=== PATIENT | male | born 1975 | race American Indian/Alaskan Native ===

== ENCOUNTER 2019-06-09 12:34 | Emergency (ER) | payer SELFPAY ==
[2019-06-09 13:05] VITALS: BP 157/114
--- NOTE | 2019-06-09 13:06 | Event Note ---
ED Screening Note Date of service: 06/09/19 Time: 13:02 ED Screening Note: 44 yo presents with cc of right sided flank/side rib pain not resolving x 2 months states pain with deep inhalation This initial assessment/diagnostic orders/clinical plan/treatment(s) is/are subject to change based on patients health status, clinical progression and re- assessment by fellow clinical providers in the ED. Further treatment and workup at subsequent clinical providers discretion. Patient/guardian urged not to elope from the ED as their condition may be serious if not clinically assessed and managed. Initial orders include: xr ua
--- NOTE | 2019-06-09 13:37 | XRay Report ---
CHEST 2 VIEWS INDICATION / CLINICAL INFORMATION: pain with inhalation. COMPARISON: None available. FINDINGS: SUPPORT DEVICES: None. HEART / MEDIASTINUM: No significant abnormality. LUNGS / PLEURA: No significant pulmonary or pleural abnormality. No pneumothorax. ADDITIONAL FINDINGS: No significant additional findings. IMPRESSION: 1. No acute findings. Signer Name: James Katz MD Signed: 06/09/2019 1:33 PM Workstation Name: [id number]
[2019-06-09 13:40] LABS: Bilirubin,Urine NEG (Negative); Blood,Urine NEG (Negative); Color,Urine Amber (Yellow); Mucus,Urine FEW /HPF
--- NOTE | 2019-06-09 15:44 | Emergency Department Report ---
ED Chest Pain HPI - General Chief Complaint: Chest Pain Stated Complaint: CHEST PAIN ON RT SIDE Time Seen by Provider: 06/09/19 13:02 Source: patient Mode of arrival: Ambulatory Limitations: No Limitations - History of Present Illness Initial Comments: Patient is 44 years old male with history of hypertension, noncompliant with his medication. Patient presented to the ER complaining of right sided chest pain started 2 months ago. Patient stated that he was sleeping and then he changed his position when all of a sudden he heard a pop and since then he's been having this chest pain. Patient stated that pain increase with movement, on and off. Patient denied any shortness of breath or left-sided chest pain. No fever or chills. MD Complaint: chest pain - Related Data Allergies Allergy/AdvReac Type Severity Reaction Status Date / Time No Known Allergies Allergy Verified 06/09/19 12:35 Heart Score - HEART Score History: Slightly suspicious EKG: Non-specific Age: < 45 Risk factors: 1-2 risk factors Troponin: < normal limit HEART Score: 2 - Critical Actions Critical Actions: 0-3 pts:0.9-1.7%risk of adverse cardiac event.Candidate for discharge ED Review of Systems ROS: Stated complaint: CHEST PAIN ON RT SIDE Other details as noted in HPI Comment: All other systems reviewed and negative Constitutional: denies: chills, fever Respiratory: denies: shortness of breath, wheezing Cardiovascular: denies: chest pain Gastrointestinal: denies: abdominal pain, nausea, vomiting ED Past Medical Hx - Past Medical History Hx Hypertension: Yes - Surgical History Past Surgical History?: No - Social History Smoking Status: Current Every Day Smoker Substance Use Type: Alcohol, Marijuana ED Physical Exam - General Limitations: No Limitations General appearance: alert, in no apparent distress - Head Head exam: Present: atraumatic, normocephalic, normal inspection - ENT ENT exam: Present: normal exam - Neck Neck exam: Present: normal inspection - Respiratory Respiratory exam: Present: normal lung sounds bilaterally, chest wall tenderness (right lower chest posteriorly). Absent: respiratory distress, wheezes, rales, rhonchi - Cardiovascular Cardiovascular Exam: Present: regular rate, normal rhythm, normal heart sounds - GI/Abdominal GI/Abdominal exam: Present: soft, normal bowel sounds. Absent: distended, tenderness, guarding, rebound, rigid, organomegaly, mass, bruit, pulsatile mass, hernia - Extremities Exam Extremities exam: Present: normal inspection, full ROM, normal capillary refill. Absent: tenderness, pedal edema, calf tenderness - Back Exam Back exam: Present: normal inspection, full ROM. Absent: CVA tenderness (R), CVA tenderness (L), muscle spasm, paraspinal tenderness, vertebral tenderness - Neurological Exam Neurological exam: Present: alert, oriented X3, CN II-XII intact - Psychiatric Psychiatric exam: Present: normal mood - Skin Skin exam: Present: warm, intact, normal color ED Course Vital Signs 06/09/19 13:02 Temperature 98.6 F Pulse Rate 76 Respiratory 18 Rate Blood Pressure 157/114 O2 Sat by Pulse 98 Oximetry ED Medical Decision Making - EKG Data -: EKG Interpreted by Sd EKG shows normal: sinus rhythm Rate: normal - EKG Data Interpretation: no acute changes - Radiology Data Radiology results: report reviewed Chest x-ray is unremarkable. - Medical Decision Making Patient is 44 years old male with history of hypertension, noncompliant with his medication. Patient presented to the ER complaining of right sided chest pain started 2 months ago. Patient stated that he was sleeping and then he changed his position when all of a sudden he heard a pop and since then he's been having this chest pain. Patient stated that pain increase with movement, on and off. Patient denied any shortness of breath or left-sided chest pain. No fever or chills. EKG did not show any ST elevation. Chest x-ray is unremarkable. Patient's symptoms consistent with musculoskeletal pain. Patient will be started on Naprosyn and Flexeril. Patient counseled about compliance with a blood pressure medicine. Patient stated that he will start taking his home medicine. Critical care attestation.: If time is entered above; I have spent that time in minutes in the direct care of this critically ill patient, excluding procedure time. ED Disposition Clinical Impression: Atypical chest pain, Costochondritis, acute Disposition: DC-01 TO HOME OR SELFCARE Is pt being admited?: No Condition: Stable Instructions: Chest Pain (ED), Costochondritis (ED) Referrals: PRIMARY CARE, [Primary Care Provider] - 3-5 Days
== END 2019-06-09 16:01 | disposition home or self-care (01) ==
LOC: ED 12:34
DX: M94.0 Chondrocostal junction syndrome [Tietze] (principal); F17.200 Nicotine dependence, unspecified, uncomplicated; I10 Essential (primary) hypertension; F12.10 Cannabis abuse, uncomplicated
CPT/HCPCS: 71046; 81001; 93005; 93010

== ENCOUNTER 2020-11-11 12:07 | Emergency (ER) | payer SELFPAY ==
[2020-11-11] MEDS ORDERED: IBUPROFEN 800 MG TAB PO ONE (12:20)
[2020-11-11] MEDS ORDERED: predniSONE 20 MG TAB PO ONE (12:20)
[2020-11-11 12:21] VITALS: BP 199/116
--- NOTE | 2020-11-11 13:02 | XRay Report ---
Pelvis and right hip INDICATION: Pain FINDINGS: I lateral femoral heads well-seated in the acetabulum. Sacrum and sacroiliac joints appear normal. No acute fracture or dislocation. Lumbar spine 3 views INDICATION: Back pain FINDINGS: Mild anterior listhesis of L4-L5. Endplate changes L4-5 and L5-S1. Facet changes at L4-5. N o compression fracture. Signer Name: Eliazar Franco MD Signed: 11/11/2020 12:58 PM Workstation Name: [id number]
--- NOTE | 2020-11-11 13:33 | Emergency Department Report ---
ED Back Pain/Injury HPI - General Chief Complaint: Back Pain/Injury Stated Complaint: RT HIP PAIN Time Seen by Provider: 11/11/20 12:19 Source: patient Limitations: No Limitations - History of Present Illness Initial Comments: This is a 45-year-old male nontoxic, well nourished in appearance, no acute signs of distress presents to the ED with c/o of acute on chronic lower back pain. Patient stated that the past 2 days he was moving and developed this pain. Stated has radiation to right hip as well with pains. Patient states has history of sciatica nerve pain which is similar symptoms as today. Patient states that pain radiates through to his right lower extremity. Patient denies any trauma. Denies any bladder or bowel instability. Patient denies any urinary symptoms. Denies any fever, chills, nausea, vomiting, headache, stiff neck, chest pain or shortness of breath. Patient denies any numbness or tingling. Denies any allergies. Patient still has past medical history of hypertension and has not taken his medication for the past 3 months. Stated has been taking Norvasc 10 mg. MD Complaint: back pain, other (right hip pain) -: days(s) Similar Symptoms Previously: Yes Place: home Radiation: right leg Severity: mild Severity scale (0 -10): 8 Quality: aching Consistency: intermittent Improves With: immobilization, sitting upright Worsens With: movement, walking Context: while lifting, turning/twisting Associated Symptoms: denies other symptoms. denies: confusion, weakness, chest pain, numbness, difficulty walking, cough, difficulty urinating, diaphoresis, incontinence, fever/chills, constipation, headaches, abdominal pain, loss of appetite, malaise, nausea/vomiting, rash, seizure, shortness of breath, syncope - Related Data Previous Rx's Medication Instructions Recorded Last Taken Type Naproxen [Naprosyn] 500 mg PO BID #14 tablet 06/09/19 Unknown Rx Naloxone HCl [Narcan Nasal Bluebell] 4 mg NS Q1HR PRN #5 spray 10/02/19 Unknown Rx Ondansetron [Zofran Odt] 4 mg PO Q8HR PRN #20 tab.rapdis 10/02/19 Unknown Rx Cyclobenzaprine [Flexeril] 10 mg PO QHS PRN #10 tablet 11/11/20 Unknown Rx Naproxen 500 mg PO Q12H PRN #12 tablet 11/11/20 Unknown Rx amLODIPine 10 mg PO DAILY #30 tab 11/11/20 Unknown Rx Allergies Allergy/AdvReac Type Severity Reaction Status Date / Time No Known Allergies Allergy Verified 06/09/19 12:35 ED Review of Systems ROS: Stated complaint: RT HIP PAIN Other details as noted in HPI Comment: All other systems reviewed and negative Constitutional: denies: chills, fever Eyes: denies: eye pain, eye discharge, vision change ENT: denies: ear pain, throat pain Respiratory: denies: cough, shortness of breath, wheezing Cardiovascular: denies: chest pain, palpitations Endocrine: no symptoms reported Gastrointestinal: denies: abdominal pain, nausea, diarrhea Genitourinary: denies: urgency, dysuria Musculoskeletal: back pain. denies: joint swelling, arthralgia Skin: denies: rash, lesions Neurological: denies: headache, weakness, paresthesias Psychiatric: denies: anxiety, depression Hematological/Lymphatic: denies: easy bleeding, easy bruising ED Past Medical Hx - Past Medical History Previous Medical History?: Yes Hx Hypertension: Yes - Surgical History Past Surgical History?: No - Social History Smoking Status: Current Every Day Smoker Substance Use Type: None - Medications Home Medications: Home Medications Medication Instructions Recorded Confirmed Last Taken Type Naproxen [Naprosyn] 500 mg PO BID #14 tablet 06/09/19 Unknown Rx Naloxone HCl [Narcan Nasal Bluebell] 4 mg NS Q1HR PRN #5 spray 10/02/19 Unknown Rx Ondansetron [Zofran Odt] 4 mg PO Q8HR PRN #20 tab.rapdis 10/02/19 Unknown Rx Cyclobenzaprine [Flexeril] 10 mg PO QHS PRN #10 tablet 11/11/20 Unknown Rx Naproxen 500 mg PO Q12H PRN #12 tablet 11/11/20 Unknown Rx amLODIPine 10 mg PO DAILY #30 tab 11/11/20 Unknown Rx ED Physical Exam - General Limitations: No Limitations General appearance: alert, in no apparent distress - Head Head exam: Present: atraumatic, normocephalic - Eye Eye exam: Present: normal appearance - Neck Neck exam: Present: normal inspection, full ROM. Absent: tenderness, meningismus, lymphadenopathy - Respiratory Respiratory exam: Absent: respiratory distress - Cardiovascular Cardiovascular Exam: Present: regular rate - GI/Abdominal GI/Abdominal exam: Present: soft. Absent: distended, tenderness - Extremities Exam Extremities exam: Present: normal inspection, full ROM, normal capillary refill. Absent: tenderness, joint swelling, calf tenderness - Back Exam Back exam: Present: normal inspection, full ROM, paraspinal tenderness (right lumbar paraspinal). Absent: tenderness, CVA tenderness (R), CVA tenderness (L), muscle spasm, vertebral tenderness, rash noted - Expanded Back Exam Expanded Back exam: Absent: saddle anesthesia Back exam: Negative Straight Leg Raising: Left, Right - Neurological Exam Neurological exam: Present: alert, oriented X3, normal gait - Psychiatric Psychiatric exam: Present: normal affect, normal mood - Skin Skin exam: Present: warm, dry, intact, normal color. Absent: rash ED Course Vital Signs 11/11/20 12:18 Temperature 98.7 F Pulse Rate 101 H Respiratory 18 Rate Blood Pressure 199/116 O2 Sat by Pulse 100 Oximetry - Reevaluation(s) Reevaluation #1: 11/11/20 13:33 Patient is speaking in full sentences with no signs of distress noted. ED Medical Decision Making - Radiology Data Referring Physician: MAXWELL DOVE Patient Name: SALOMÓN ROSENBAUM Date of : 1975 Sex: Male Report Date: 2020-11-11 Report Status: Finalized [address] [address] XRay Report Signed Patient: SALOMÓN ROSENBAUM MR#: [id number] : 1975 Acct:[id number] Age/Sex: 45 / M ADM Date: 11/11/20 Loc: ED Attending Dr: Ordering Physician: MAXWELL DOVE NP Date of Service: 11/11/20 Procedure(s): XR spine lumbosacral 2-3V Accession Number(s): [id number] cc: MAXWELL DOVE NP Fluoro Time In Minutes: Pelvis and right hip INDICATION: Pain FINDINGS: I lateral femoral heads well-seated in the acetabulum. Sacrum and sacroiliac joints appear normal. No acute fracture or dislocation. Lumbar spine 3 views INDICATION: Back pain FINDINGS: Mild anterior listhesis of L4-L5. Endplate changes L4-5 and L5-S1. Facet changes at L4-5. No compression fracture. Signer Name: Eliazar Franco MD Signed: 11/11/2020 12:58 PM Workstation Name: [id number] Transcribed By: PEACE Dictated By: DEREK FRANCO MD Electronically Authenticated By: DEREK FRANCO MD Signed Date/Time: 11/11/20 1258 DD/ 1257 TD/TT: Referring Physician: MAXWELL DOVE Patient Name: SALOMÓN ROSENBAUM Date of : 1975 Sex: Male Report Date: 2020-11-11 Report Status: Finalized [address] [address] XRay Report Signed Patient: SALOMÓN ROSENBAUM MR#: [id number] : 1975 Acct:[id number] Age/Sex: 45 / M ADM Date: 11/11/20 Loc: ED Attending Dr: Ordering Physician: MAXWELL DOVE NP Date of Service: 11/11/20 Procedure(s): XR spine lumbosacral 2-3V Accession Number(s): [id number] cc: MAXWELL DOVE NP Fluoro Time In Minutes: Pelvis and right hip INDICATION: Pain FINDINGS: I lateral femoral heads well-seated in the acetabulum. Sacrum and sacroiliac joints appear normal. No acute fracture or dislocation. Lumbar spine 3 views INDICATION: Back pain FINDINGS: Mild anterior listhesis of L4-L5. Endplate changes L4-5 and L5-S1. Facet changes at L4-5. No compression fracture. Signer Name: Eliazar Franco MD Signed: 11/11/2020 12:58 PM Workstation Name: [id number] Transcribed By: PEACE Dictated By: DEREK FRANCO MD Electronically Authenticated By: DEREK FRANCO MD Signed Date/Time: 11/11/20 1258 DD/ 1257 TD/TT: - Medical Decision Making This is a 45-year-old male that presents with low back strain. Patient is stable was examined by me. There is no spinal tenderness. There is no cauda equina syndrome during examination. No bladder or bowel instability. Patient is notified of the x-ray results with no questions noted by the patient. Patient received Motrin and prednisone in the ED which stated that his symptoms has resolved and subsided. Patient is discharged with muscle relaxant and Motrin. Patient was instructed not to operate any machinery while taking muscle relaxant as they cause her drowsiness. Patient was also educated on hypertension. I will refill patient's medication. Patient was referred to Follow-up with a primary care doctor in 3-5 days or if symptoms worsen and continue return to emergency room as soon as possible. At time of discharge, the patient does not seem toxic or ill in appearance. No acute signs of distress noted. Patient agrees to discharge treatment plan of care. No further questions noted by the patient. According to ACEP: (1) in ED patients with asymptomatic markedly elevated blood pressure, routine screening for acute target organ injury (eg, serum creatinine, urinalysis, ECG) is not required. (1) In patients with asymptomatic markedly elevated blood pressure, routine ED medical intervention is not required. This chart is dictated with using [employer] Critical care attestation.: If time is entered above; I have spent that time in minutes in the direct care of this critically ill patient, excluding procedure time. ED Disposition Clinical Impression: Medication refill, Sciatica, right side HTN (hypertension) Qualifiers: Hypertension type: unspecified Qualified Code(s): I10 - Essential (primary) hypertension Low back strain Qualifiers: Encounter type: initial encounter Qualified Code(s): S39.012A - Strain of muscle, fascia and tendon of lower back, initial encounter Disposition: TO HOME OR SELFCARE Is pt being admited?: No Does the pt Need Aspirin: No Condition: Stable Instructions: Hypertension (ED), Hypertension, Adult, Lumbosacral Strain, Sciatica, Cyclobenzaprine tablets Additional Instructions: Follow-up with your primary care doctor in 3-5 days or if symptoms worsen such as bladder or bowel stability, chest pain, short of breath, numbness or tingling sensation in extremities, headache, dizziness, visual changes, nausea vomiting, or abdominal pain, return back to emergency room as was possible. Take ibuprofen and Flexeril as prescribed. Do not operate heavy machinery while taking Flexeril due to sedation Prescriptions: Cyclobenzaprine [Flexeril] 10 mg PO QHS PRN #10 tablet PRN Reason: Muscle Spasm amLODIPine 10 mg PO DAILY #30 tab Naproxen 500 mg PO Q12H PRN #12 tablet PRN Reason: Pain , Severe (7-10) Referrals: PRIMARY CAREMD [Primary Care Provider] - 3-5 Days HILL SAUCEDA MD [Staff Physician] - 3-5 Days Time of Disposition: 13:38
== END 2020-11-11 13:46 | disposition home or self-care (01) ==
LOC: ED 12:07
DX: S39.012A Strain of muscle, fascia and tendon of lower back, initial encounter (principal); I10 Essential (primary) hypertension; Z76.0 Encounter for issue of repeat prescription; Z79.899 Other long term (current) drug therapy; X58.XXXA Exposure to other specified factors, initial encounter; Y93.89 Activity, other specified; Y92.89 Other specified places as the place of occurrence of the external cause; Y99.8 Other external cause status
CPT/HCPCS: 72100; 73502; 99283; J7512

== ENCOUNTER 2021-04-29 08:26 | Emergency (ER) | payer OTHER ==
[2021-04-29] MEDS ORDERED: HALOPERIDOL LACTATE 5 MG/1 ML INJ IM PRN (09:00)
[2021-04-29] MEDS ORDERED: LORazepam 2 MG/ML VIAL IM PRN (09:00)
[2021-04-29] MEDS ORDERED: diphenhydrAMINE 50 MG/ML VIAL IM PRN (09:00)
--- NOTE | 2021-04-29 09:06 | Emergency Department Report ---
HPI - HPI HPI: Room 12 Patient is a 45-year-old male present with a chief complaint of depression. The patient reportedly has history of schizophrenia and depression and is reportedly off of his medications per the mom. The mother reported to EMS the patient has been depressed but no further history has been given. In the ED the patient does not answer questions. He occasionally makes eye contact but does not attempt to answer questions. <KENNETH BATRES - Last Filed: 04/29/21 09:01> <EDWIGE STEWART - Last Filed: 05/01/21 10:30> - General Time Seen by Provider: 04/29/21 08:54 ED Past Medical Hx - Past Medical History Hx Hypertension: Yes Hx Psychiatric Treatment: Yes (Schizophrenia, depression) - Surgical History Past Surgical History?: No - Family History Family history: no significant - Social History Smoking Status: Unknown if ever smoked Substance Use Type: None <KENNETH BATRES - Last Filed: 04/29/21 09:01> <EDWIGE STEWART - Last Filed: 05/01/21 10:30> - Medications Home Medications: Home Medications Medication Instructions Recorded Confirmed Last Taken Type Naproxen [Naprosyn] 500 mg PO BID #14 tablet 06/09/19 05/01/21 Unknown Rx Naloxone HCl [Narcan Nasal [place]] 4 mg NS Q1HR PRN #5 spray 10/02/19 05/01/21 Unknown Rx Ondansetron [Zofran Odt] 4 mg PO Q8HR PRN #20 tab.rapdis 10/02/19 05/01/21 Unknown Rx Cyclobenzaprine [Flexeril] 10 mg PO QHS PRN #10 tablet 11/11/20 05/01/21 Unknown Rx Naproxen 500 mg PO Q12H PRN #12 tablet 11/11/20 05/01/21 Unknown Rx amLODIPine 10 mg PO DAILY #30 tab 11/11/20 05/01/21 Unknown Rx FLUoxetine [PROzac] 20 mg PO QDAY 04/29/21 04/29/21 Unknown History Valproic Acid [Depakene] 500 mg PO BID 30 Days #60 capsule 04/29/21 Unknown Rx risperiDONE [RisperDAL] 1 mg PO BID 30 Days #60 tablet 04/29/21 Unknown Rx amLODIPine 10 mg PO DAILY #30 tablet 05/01/21 Unknown Rx ED Review of Systems ROS: Stated complaint: DEPRESSION AND OFF MEDICATION Other details as noted in HPI Comment: Unobtainable due to pts medical conditions <KENNETH BATRES - Last Filed: 04/29/21 09:01> ROS: Stated complaint: DEPRESSION AND OFF MEDICATION Other details as noted in HPI <EDWIGE STEWART - Last Filed: 05/01/21 10:30> Physical Exam - Physical Exam Physical Exam: GENERAL: The patient is well-developed well-nourished male sitting in chair not appearing to be in acute distress HEENT: Normocephalic. Atraumatic. Extraocular motions are intact. Patient has moist mucous membranes. NECK: Supple. Trachea midline CHEST/LUNGS: Clear to auscultation. There is no respiratory distress noted. HEART/CARDIOVASCULAR: Regular. There is no tachycardia. There is no gallop rub or murmur. ABDOMEN: Abdomen is soft, nontender. Patient has normal bowel sounds. There is no abdominal distention. SKIN: There is no rash. There is no edema. There is no diaphoresis. NEURO: The patient is awake and alert but nonverbal. Patient makes occasional eye contact but does not attempt to answer questions MUSCULOSKELETAL: There is no evidence of acute injury. <KENNETH BATRES - Last Filed: 04/29/21 09:01> - Physical Exam Vital Signs: Vital Signs 04/29/21 04/29/21 04/30/21 09:01 20:01 10:30 Temperature 98.6 F 97.9 F Pulse Rate 70 80 Respiratory 18 18 18 Rate Blood Pressure Blood Pressure 170/98 161/91 [Left] O2 Sat by Pulse 99 100 Oximetry 05/01/21 05/01/21 08:00 09:05 Temperature 98.5 F Pulse Rate 80 80 Respiratory 18 Rate Blood Pressure 212/135 Blood Pressure 212/135 [Left] O2 Sat by Pulse 97 Oximetry <EDWIGE STEWART - Last Filed: 05/01/21 10:30> ED Course Vital Signs 04/29/21 04/29/21 04/30/21 09:01 20:01 10:30 Temperature 98.6 F 97.9 F Pulse Rate 70 80 Respiratory 18 18 18 Rate Blood Pressure Blood Pressure 170/98 161/91 [Left] O2 Sat by Pulse 99 100 Oximetry 05/01/21 05/01/21 08:00 09:05 Temperature 98.5 F Pulse Rate 80 80 Respiratory 18 Rate Blood Pressure 212/135 Blood Pressure 212/135 [Left] O2 Sat by Pulse 97 Oximetry - Reevaluation(s) Reevaluation #1: 05/01/21 10:27 Psychiatry Progress Note Patient Name: SALOMÓN ROSENBAUM Date of : 79 Patient Status: Emergency Emergency Provider: KENNETH BATRES Date: 05/01/21 10:13 Initialization Date: 05/01/21 10:13 Subjective - Reason for Consult Consult date: 05/01/21 Reason for consult: suicidal ideation - Chief Complaint Chief complaint: The patient was seen this morning eating breakfast. He is calm, reports sleep and appetite as good. No aggressive behavior reported by the nurse. The patient denies any current suicidal/homicidal ideation and denies hallucinations. Diagnoses: Schizophrenia, Bipolar Suicide attempts or Self-harm behavior: Denies Prior psychiatric hospitalizations: Yes Substance Abuse history: Denies Previous psychiatric medications tried: Ativan, Zoloft, Prozac Outpatient treatment: yes SOCIAL HISTORY Marital Status: Single Living Arrangements: lives with mother Employment Status: unemployed Access to guns/weapons: Denied Education: 11th grade History of Abuse: Denied Legal History: None reported REVIEW OF SYSTEMS Constitutional: Negative for weight loss ENT: Negative for stridor Respiratory: Negative for cough or hemoptysis All other systems reviewed and are negative MENTAL STATUS EXAMINATION General Appearance and Behavior: Age appropriate, dressed appropriately, calm and cooperative Cooperation: Participating Psychomotor Behavior: psychomotor normal Mood: OK Affect and affective range: Congruent with stated mood Thought Process: goal directed Thought Content: No SI Speech: Normal volume, Regular rate and rhythm, Intellectual Functioning: Average Suicidal Ideation: Denied Homicidal Ideation: Denied Hallucinations: Denied Delusions: None elicited Impulse Control: Unimpaired Insight and Judgment: Poor insight and judgment, Memory: Normal Attention: Distractible Orientation: Alert, oriented Assessment and Plan (1)Schizophrenia- F20.9 Treatment Plan Continue Risperidone 1mg po BID Continue Depakote 500mg po BID The patient to comply with previously prescribed medications Risks, benefits and alternatives of medications discussed with the patient, questions answered and consent obtained from patient. PSYCHOTHERAPY: Supportive psychotherapy provided MEDICAL: Per primary team DELIRIUM PRECAUTIONS: Please re-orient patient frequently, keep lights on during the day, and minimize benzodiazepines and opiates as these medications could worsen patient's confusion. 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 FOLLOW-UP: Will sign off Please contact with any questions and/or concerns. Case staffed with Dr. Castillo Reevaluation #2: 05/01/21 10:27 Patient started on Risperdal and Depakote and has been stabilized. Is the time of discharge he is no longer endorsing any suicidal thoughts. Patient blood pressure has remained elevated and is received multiple doses of blood pressure medications. History of taking amlodipine 10 mg has been noncompliant. We will refill this medication for the patient. Endorsing no signs or symptoms of endorgan damage at this time. Patient stable for discharge. <EDWIGE STEWART - Last Filed: 05/01/21 10:30> ED Medical Decision Making - Differential Diagnosis Schizophrenia <KENNETH BATRES - Last Filed: 04/29/21 09:01> - Lab Data Result diagrams: 04/30/21 19:35 04/29/21 11:56 Lab Results 04/29/21 04/29/21 04/29/21 Range/Units 10:42 10:42 11:13 WBC (4.5-11.0) K/mm3 RBC (3.65-5.03) M/mm3 Hgb (11.8-15.2) gm/dl Hct (35.5-45.6) % MCV (84-94) fl MCH (28-32) pg MCHC (32-34) % RDW (13.2-15.2) % Plt Count (140-440) K/mm3 Lymph % (Auto) (13.4-35.0) % [place] % (Auto) (0.0-7.3) % Eos % (Auto) (0.0-4.3) % Baso % (Auto) (0.0-1.8) % Lymph # (Auto) (1.2-5.4) K/mm3 [place] # (Auto) (0.0-0.8) K/mm3 Eos # (Auto) (0.0-0.4) K/mm3 Baso # (Auto) (0.0-0.1) K/mm3 Seg Neutrophils % (40.0-70.0) % Seg Neutrophils # (1.8-7.7) K/mm3 Sodium (137-145) mmol/L Potassium (3.6-5.0) mmol/L Chloride (98-107) mmol/L Carbon Dioxide (22-30) mmol/L Anion Gap mmol/L BUN (9-20) mg/dL Creatinine (0.8-1.3) mg/dL Estimated GFR ml/min BUN/Creatinine Ratio % Glucose (75-100) mg/dL Calcium (8.4-10.2) mg/dL Urine Color Yellow (Yellow) Urine Turbidity Clear (Clear) Urine pH 6.0 (5.0-7.0) Ur Specific [place] 1.018 (1.003-1.030) Urine Protein 100 mg/dl (Negative) mg/dL Urine Glucose (UA) Neg (Negative) mg/dL Urine Ketones Neg (Negative) mg/dL Urine Blood Sm (Negative) Urine Nitrite Neg (Negative) Urine Bilirubin Neg (Negative) Urine Urobilinogen < 2.0 (<2.0) mg/dL Ur Leukocyte Esterase Tr (Negative) Urine WBC (Auto) 3.0 (0.0-6.0) /HPF Urine RBC (Auto) 3.0 (0.0-6.0) /HPF Urine Mucus Few /HPF Salicylates (2.8-20.0) mg/dL Urine Opiates Screen Negative Urine Methadone Screen Negative Acetaminophen (10.0-30.0) ug/mL Ur Barbiturates Screen Negative Ur Phencyclidine Scrn Negative Ur Amphetamines Screen Presumptive positive U Benzodiazepines Scrn Negative Urine Cocaine Screen Presumptive positive U Marijuana (THC) Screen Presumptive positive Drugs of Abuse Note Disclamer Plasma/Serum Alcohol (0-0.07) % Coronavirus (PCR) Negative (Negative) 04/29/21 04/29/21 04/29/21 Range/Units 11:56 11:56 11:56 WBC 10.6 (4.5-11.0) K/mm3 RBC 4.61 (3.65-5.03) M/mm3 Hgb 14.2 (11.8-15.2) gm/dl Hct 42.8 (35.5-45.6) % MCV 93 (84-94) fl MCH 31 (28-32) pg MCHC 33 (32-34) % RDW 15.7 H (13.2-15.2) % Plt Count 234 (140-440) K/mm3 Lymph % (Auto) 17.5 (13.4-35.0) % [place] % (Auto) 8.0 H (0.0-7.3) % Eos % (Auto) 1.1 (0.0-4.3) % Baso % (Auto) 0.3 (0.0-1.8) % Lymph # (Auto) 1.9 (1.2-5.4) K/mm3 [place] # (Auto) 0.9 H (0.0-0.8) K/mm3 Eos # (Auto) 0.1 (0.0-0.4) K/mm3 Baso # (Auto) 0.0 (0.0-0.1) K/mm3 Seg Neutrophils % 73.1 H (40.0-70.0) % Seg Neutrophils # 7.8 H (1.8-7.7) K/mm3 Sodium 139 (137-145) mmol/L Potassium 3.7 (3.6-5.0) mmol/L Chloride 101.7 (98-107) mmol/L Carbon Dioxide 27 (22-30) mmol/L Anion Gap 14 mmol/L BUN 11 (9-20) mg/dL Creatinine 1.2 (0.8-1.3) mg/dL Estimated GFR > 60 ml/min BUN/Creatinine Ratio 9 % Glucose 94 (75-100) mg/dL Calcium 8.8 (8.4-10.2) mg/dL Urine Color (Yellow) Urine Turbidity (Clear) Urine pH (5.0-7.0) Ur Specific [place] (1.003-1.030) Urine Protein (Negative) mg/dL Urine Glucose (UA) (Negative) mg/dL Urine Ketones (Negative) mg/dL Urine Blood (Negative) Urine Nitrite (Negative) Urine Bilirubin (Negative) Urine Urobilinogen (<2.0) mg/dL Ur Leukocyte Esterase (Negative) Urine WBC (Auto) (0.0-6.0) /HPF Urine RBC (Auto) (0.0-6.0) /HPF Urine Mucus /HPF Salicylates < 0.3 L (2.8-20.0) mg/dL Urine Opiates Screen Urine Methadone Screen Acetaminophen (10.0-30.0) ug/mL Ur Barbiturates Screen Ur Phencyclidine Scrn Ur Amphetamines Screen U Benzodiazepines Scrn Urine Cocaine Screen U Marijuana (THC) Screen Drugs of Abuse Note Plasma/Serum Alcohol (0-0.07) % Coronavirus (PCR) (Negative) 04/29/21 04/29/21 04/30/21 Range/Units 11:56 11:56 19:35 WBC 10.7 (4.5-11.0) K/mm3 RBC 4.56 (3.65-5.03) M/mm3 Hgb 14.1 (11.8-15.2) gm/dl Hct 41.9 (35.5-45.6) % MCV 92 (84-94) fl MCH 31 (28-32) pg MCHC 34 (32-34) % RDW 15.6 H (13.2-15.2) % Plt Count 227 (140-440) K/mm3 Lymph % (Auto) 22.2 (13.4-35.0) % [place] % (Auto) 10.6 H (0.0-7.3) % Eos % (Auto) 1.0 (0.0-4.3) % Baso % (Auto) 0.7 (0.0-1.8) % Lymph # (Auto) 2.4 (1.2-5.4) K/mm3 [place] # (Auto) 1.1 H (0.0-0.8) K/mm3 Eos # (Auto) 0.1 (0.0-0.4) K/mm3 Baso # (Auto) 0.1 (0.0-0.1) K/mm3 Seg Neutrophils % 65.5 (40.0-70.0) % Seg Neutrophils # 7.0 (1.8-7.7) K/mm3 Sodium (137-145) mmol/L Potassium (3.6-5.0) mmol/L Chloride (98-107) mmol/L Carbon Dioxide (22-30) mmol/L Anion Gap mmol/L BUN (9-20) mg/dL Creatinine (0.8-1.3) mg/dL Estimated GFR ml/min BUN/Creatinine Ratio % Glucose (75-100) mg/dL Calcium (8.4-10.2) mg/dL Urine Color (Yellow) Urine Turbidity (Clear) Urine pH (5.0-7.0) Ur Specific [place] (1.003-1.030) Urine Protein (Negative) mg/dL Urine Glucose (UA) (Negative) mg/dL Urine Ketones (Negative) mg/dL Urine Blood (Negative) Urine Nitrite (Negative) Urine Bilirubin (Negative) Urine Urobilinogen (<2.0) mg/dL Ur Leukocyte Esterase (Negative) Urine WBC (Auto) (0.0-6.0) /HPF Urine RBC (Auto) (0.0-6.0) /HPF Urine Mucus /HPF Salicylates (2.8-20.0) mg/dL Urine Opiates Screen Urine Methadone Screen Acetaminophen 5.0 L (10.0-30.0) ug/mL Ur Barbiturates Screen Ur Phencyclidine Scrn Ur Amphetamines Screen U Benzodiazepines Scrn Urine Cocaine Screen U Marijuana (THC) Screen Drugs of Abuse Note Plasma/Serum Alcohol < 0.01 (0-0.07) % Coronavirus (PCR) (Negative) <EDWIGE STEWART - Last Filed: 05/01/21 10:30> Critical care attestation.: If time is entered above; I have spent that time in minutes in the direct care of this critically ill patient, excluding procedure time. <KENNETH BATRES - Last Filed: 04/29/21 09:01> Critical care attestation.: If time is entered above; I have spent that time in minutes in the direct care of this critically ill patient, excluding procedure time. <EDWIGE STEWART - Last Filed: 05/01/21 10:30> ED Disposition <KENNETH BATRES - Last Filed: 04/29/21 09:01> Is pt being admited?: No Does the pt Need Aspirin: No Time of Disposition: 10:29 <EDWIGE STEWART - Last Filed: 05/01/21 10:30> Clinical Impression: Schizophrenia, Hypertensive urgency, Acute psychosis Disposition: - TO HOME OR SELFCARE Condition: Stable Instructions: Schizophrenia, Hypertension, Adult, [id number] Prescriptions: amLODIPine 10 mg PO DAILY #30 tablet Valproic Acid [Depakene] 500 mg PO BID 30 Days #60 capsule risperiDONE [RisperDAL] 1 mg PO BID 30 Days #60 tablet
--- NOTE | 2021-04-29 10:46 | Consultation ---
History of Present Illness - Reason for Consult Consult date: 04/29/21 Reason for consult: Depression - History of Present Psychiatric Illness Per ED Note: Patient is a 45-year-old male present with a chief complaint of depression. The patient reportedly has history of schizophrenia and depression and is reportedly off of his medications per the mom. The mother reported to EMS the patient has been depressed but no further history has been given. In the ED the patient does not answer questions. He occasionally makes eye contact but does not attempt to answer questions. Gio Wade Is a 45 year old male with a history of Schizophrenia and Bipolar disorder who presents to the ED for increasing depression. In my inte rview with the patient, he was non cooperative, refused to answer questions. Unable to assess suicidal/ homicidal ideation and auditory/visual hallucinations at this time. Collateral information obtained from the patient's mother (Jaimee Page)- She reports that the patient has a history of Bipolar and Schizophrenia with multiple psychiatric inpatient admissions. She states that the patient was on Prozac 20mg po daily and Risperidone 1mg po BID however, medication compliance is unknown. Diagnoses: schizophrenia, Bipolar Suicide attempts or Self-harm behavior: Denies Prior psychiatric hospitalizations: Yes Substance Abuse history: unknown Previous psychiatric medications tried: Risperidone, Prozac Outpatient treatment: Denies PAST MEDICAL HISTORY: none reported Family Psychiatric History: None reported or documented SOCIAL HISTORY- Unable to assess REVIEW OF SYSTEMS- Unable to assess MENTAL STATUS EXAMINATION- Unable to assess Assessment and Plan (1) Schizophrenia Current Visit: Yes Status: Acute Treatment Plan Start Risperidone 1mg po BID Start Depakote 500mg po BID The patient to comply with previously prescribed medications Risks, benefits and alternatives of medications discussed with the patient, questions answered and consent obtained from patient. PSYCHOTHERAPY: Supportive psychotherapy provided MEDICAL: Per primary team DELIRIUM PRECAUTIONS: Please re-orient patient frequently, keep lights on during the day, and minimize benzodiazepines and opiates as these medications could worsen patient's confusion. 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 Case discussed with Dr. Castillo who agrees with current disposition FOLLOW-UP: Will follow Thank you for the consult. Please contact with any questions and/or concerns. Medications and Allergies Allergies Allergy/AdvReac Type Severity Reaction Status Date / Time No Known Allergies Allergy Verified 06/09/19 12:35 Home Medications Medication Instructions Recorded Confirmed Last Taken Type Naproxen [Naprosyn] 500 mg PO BID #14 tablet 06/09/19 Unknown Rx Naloxone HCl [Narcan Nasal [place]] 4 mg NS Q1HR PRN #5 spray 10/02/19 Unknown Rx Ondansetron [Zofran Odt] 4 mg PO Q8HR PRN #20 tab.rapdis 10/02/19 Unknown Rx Cyclobenzaprine [Flexeril] 10 mg PO QHS PRN #10 tablet 11/11/20 Unknown Rx Naproxen 500 mg PO Q12H PRN #12 tablet 11/11/20 Unknown Rx amLODIPine 10 mg PO DAILY #30 tab 11/11/20 Unknown Rx FLUoxetine [PROzac] 20 mg PO QDAY 04/29/21 04/29/21 Unknown History Valproic Acid [Depakene] 500 mg PO BID 30 Days #60 capsule 04/29/21 Unknown Rx risperiDONE [RisperDAL] 1 mg PO BID 30 Days #60 tablet 04/29/21 Unknown Rx Active Meds: Active Medications Diphenhydramine HCl (Diphenhydramine 50 Mg/Ml Vial) 50 mg IM Q6H PRN PRN Reason: Agitation Haloperidol Lactate (Haloperidol Lactate 5 Mg/1 Ml Inj) 10 mg IM Q8H PRN PRN Reason: Agitation Lorazepam (Lorazepam 2 Mg/Ml Vial) 2 mg IM Q8H PRN PRN Reason: Agitation Results Result Diagrams: 04/29/21 11:56 04/29/21 11:56 All other labs normal.
[2021-04-29 11:12] LABS: Bilirubin,Urine NEG (Negative); Blood,Urine SM (Negative); Color,Urine Yellow (Yellow); Mucus,Urine FEW /HPF; Urobilinogen,Urine < 2.0 mg/dL (<2.0)
[2021-04-29 11:20] LABS: Benzodiazepines Screen,Urine Negative; Methadone Screen,Urine Negative; Opiate Screen,Urine Negative
[2021-04-29 11:37] LABS: Amphetamine Screen,Urine PRESUMPTIVE POSITIVE; Cannabinoid Screen,Urine PRESUMPTIVE POSITIVE; Cocaine Screen,Urine PRESUMPTIVE POSITIVE
[2021-04-29 12:25] LABS: BUN/Creatinine Ratio 9; Blood Urea Nitrogen 11 mg/dL (9-20); Calcium 8.8 mg/dL (8.4-10.2); Hemolysis Index 2
[2021-04-29 12:46] LABS: Basophils % (Auto) 0.3 % (0.0-1.8); Eosinophils # (Auto) 0.1 K/mm3 (0.0-0.4); Eosinophils % (Auto) 1.1 % (0.0-4.3); Hematocrit 42.8 % (35.5-45.6); Hemoglobin 14.2 gm/dl (11.8-15.2); Lymphocytes # (Auto) 1.9 K/mm3 (1.2-5.4); Lymphocytes % (Auto) 17.5 % (13.4-35.0); Mean Corpuscular HGB Conc 33 % (32-34); Mean Corpuscular Volume 93 fl (84-94); Monocytes # (Auto) 0.9 K/mm3 (0.0-0.8); Platelet Count 234 K/mm3 (140-440); Red Blood Count 4.61 M/mm3 (3.65-5.03); Red Cell Distribution Width 15.7 % (13.2-15.2)
[2021-04-29] MEDS: DIVALPROEX DR 500 MG TAB PO SCH ×2 (14:33→22:56)
[2021-04-29] MEDS: risperiDONE 1 MG TAB PO SCH ×2 (14:33→22:57)
[2021-04-30] MEDS: DIVALPROEX DR 500 MG TAB PO SCH ×2 (01:07→10:07)
[2021-04-30] MEDS: risperiDONE 1 MG TAB PO SCH ×2 (01:11→10:00)
--- NOTE | 2021-04-30 08:17 | Event Note ---
Date: 04/30/21 [id number] evaluation performed. Patient is awake, walking around with a steady gait in the seclusion room, protecting his airway. Nursing team reports that patient has been agitated, belligerent and aggressive, throwing meal tray, hitting wall, did not respond to verbal techniques, show of force, or as needed medication. 1013 form is filled out, 1013 is ordered, psychiatric recommendations reviewed and appreciated, appreciate psychiatric recommendations at this time. Seclusion orders placed. Have requested that nursing team update vital signs, and reconcile home medications, if any. Vital Signs 04/29/21 04/29/21 09:01 20:01 Temperature 98.6 F Pulse Rate 70 Respiratory 18 18 Rate Blood Pressure 170/98 [Left] O2 Sat by Pulse 99 Oximetry Lab Results 04/29/21 04/29/21 04/29/21 Range/Units 10:42 10:42 11:13 WBC (4.5-11.0) K/mm3 RBC (3.65-5.03) M/mm3 Hgb (11.8-15.2) gm/dl Hct (35.5-45.6) % MCV (84-94) fl MCH (28-32) pg MCHC (32-34) % RDW (13.2-15.2) % Plt Count (140-440) K/mm3 Lymph % (Auto) (13.4-35.0) % [place] % (Auto) (0.0-7.3) % Eos % (Auto) (0.0-4.3) % Baso % (Auto) (0.0-1.8) % Lymph # (Auto) (1.2-5.4) K/mm3 [place] # (Auto) (0.0-0.8) K/mm3 Eos # (Auto) (0.0-0.4) K/mm3 Baso # (Auto) (0.0-0.1) K/mm3 Seg Neutrophils % (40.0-70.0) % Seg Neutrophils # (1.8-7.7) K/mm3 Sodium (137-145) mmol/L Potassium (3.6-5.0) mmol/L Chloride (98-107) mmol/L Carbon Dioxide (22-30) mmol/L Anion Gap mmol/L BUN (9-20) mg/dL Creatinine (0.8-1.3) mg/dL Estimated GFR ml/min BUN/Creatinine Ratio % Glucose (75-100) mg/dL Calcium (8.4-10.2) mg/dL Urine Color Yellow (Yellow) Urine Turbidity Clear (Clear) Urine pH 6.0 (5.0-7.0) Ur Specific [place] 1.018 (1.003-1.030) Urine Protein 100 mg/dl (Negative) mg/dL Urine Glucose (UA) Neg (Negative) mg/dL Urine Ketones Neg (Negative) mg/dL Urine Blood Sm (Negative) Urine Nitrite Neg (Negative) Urine Bilirubin Neg (Negative) Urine Urobilinogen < 2.0 (<2.0) mg/dL Ur Leukocyte Esterase Tr (Negative) Urine WBC (Auto) 3.0 (0.0-6.0) /HPF Urine RBC (Auto) 3.0 (0.0-6.0) /HPF Urine Mucus Few /HPF Salicylates (2.8-20.0) mg/dL Urine Opiates Screen Negative Urine Methadone Screen Negative Acetaminophen (10.0-30.0) ug/mL Ur Barbiturates Screen Negative Ur Phencyclidine Scrn Negative Ur Amphetamines Screen Presumptive positive U Benzodiazepines Scrn Negative Urine Cocaine Screen Presumptive positive U Marijuana (THC) Screen Presumptive positive Drugs of Abuse Note Disclamer Plasma/Serum Alcohol (0-0.07) % Coronavirus (PCR) Negative (Negative) 04/29/21 04/29/21 04/29/21 Range/Units 11:56 11:56 11:56 WBC 10.6 (4.5-11.0) K/mm3 RBC 4.61 (3.65-5.03) M/mm3 Hgb 14.2 (11.8-15.2) gm/dl Hct 42.8 (35.5-45.6) % MCV 93 (84-94) fl MCH 31 (28-32) pg MCHC 33 (32-34) % RDW 15.7 H (13.2-15.2) % Plt Count 234 (140-440) K/mm3 Lymph % (Auto) 17.5 (13.4-35.0) % [place] % (Auto) 8.0 H (0.0-7.3) % Eos % (Auto) 1.1 (0.0-4.3) % Baso % (Auto) 0.3 (0.0-1.8) % Lymph # (Auto) 1.9 (1.2-5.4) K/mm3 [place] # (Auto) 0.9 H (0.0-0.8) K/mm3 Eos # (Auto) 0.1 (0.0-0.4) K/mm3 Baso # (Auto) 0.0 (0.0-0.1) K/mm3 Seg Neutrophils % 73.1 H (40.0-70.0) % Seg Neutrophils # 7.8 H (1.8-7.7) K/mm3 Sodium 139 (137-145) mmol/L Potassium 3.7 (3.6-5.0) mmol/L Chloride 101.7 (98-107) mmol/L Carbon Dioxide 27 (22-30) mmol/L Anion Gap 14 mmol/L BUN 11 (9-20) mg/dL Creatinine 1.2 (0.8-1.3) mg/dL Estimated GFR > 60 ml/min BUN/Creatinine Ratio 9 % Glucose 94 (75-100) mg/dL Calcium 8.8 (8.4-10.2) mg/dL Urine Color (Yellow) Urine Turbidity (Clear) Urine pH (5.0-7.0) Ur Specific [place] (1.003-1.030) Urine Protein (Negative) mg/dL Urine Glucose (UA) (Negative) mg/dL Urine Ketones (Negative) mg/dL Urine Blood (Negative) Urine Nitrite (Negative) Urine Bilirubin (Negative) Urine Urobilinogen (<2.0) mg/dL Ur Leukocyte Esterase (Negative) Urine WBC (Auto) (0.0-6.0) /HPF Urine RBC (Auto) (0.0-6.0) /HPF Urine Mucus /HPF Salicylates < 0.3 L (2.8-20.0) mg/dL Urine Opiates Screen Urine Methadone Screen Acetaminophen (10.0-30.0) ug/mL Ur Barbiturates Screen Ur Phencyclidine Scrn Ur Amphetamines Screen U Benzodiazepines Scrn Urine Cocaine Screen U Marijuana (THC) Screen Drugs of Abuse Note Plasma/Serum Alcohol (0-0.07) % Coronavirus (PCR) (Negative) 04/29/21 04/29/21 Range/Units 11:56 11:56 WBC (4.5-11.0) K/mm3 RBC (3.65-5.03) M/mm3 Hgb (11.8-15.2) gm/dl Hct (35.5-45.6) % MCV (84-94) fl MCH (28-32) pg MCHC (32-34) % RDW (13.2-15.2) % Plt Count (140-440) K/mm3 Lymph % (Auto) (13.4-35.0) % [place] % (Auto) (0.0-7.3) % Eos % (Auto) (0.0-4.3) % Baso % (Auto) (0.0-1.8) % Lymph # (Auto) (1.2-5.4) K/mm3 [place] # (Auto) (0.0-0.8) K/mm3 Eos # (Auto) (0.0-0.4) K/mm3 Baso # (Auto) (0.0-0.1) K/mm3 Seg Neutrophils % (40.0-70.0) % Seg Neutrophils # (1.8-7.7) K/mm3 Sodium (137-145) mmol/L Potassium (3.6-5.0) mmol/L Chloride (98-107) mmol/L Carbon Dioxide (22-30) mmol/L Anion Gap mmol/L BUN (9-20) mg/dL Creatinine (0.8-1.3) mg/dL Estimated GFR ml/min BUN/Creatinine Ratio % Glucose (75-100) mg/dL Calcium (8.4-10.2) mg/dL Urine Color (Yellow) Urine Turbidity (Clear) Urine pH (5.0-7.0) Ur Specific [place] (1.003-1.030) Urine Protein (Negative) mg/dL Urine Glucose (UA) (Negative) mg/dL Urine Ketones (Negative) mg/dL Urine Blood (Negative) Urine Nitrite (Negative) Urine Bilirubin (Negative) Urine Urobilinogen (<2.0) mg/dL Ur Leukocyte Esterase (Negative) Urine WBC (Auto) (0.0-6.0) /HPF Urine RBC (Auto) (0.0-6.0) /HPF Urine Mucus /HPF Salicylates (2.8-20.0) mg/dL Urine Opiates Screen Urine Methadone Screen Acetaminophen 5.0 L (10.0-30.0) ug/mL Ur Barbiturates Screen Ur Phencyclidine Scrn Ur Amphetamines Screen U Benzodiazepines Scrn Urine Cocaine Screen U Marijuana (THC) Screen Drugs of Abuse Note Plasma/Serum Alcohol < 0.01 (0-0.07) % Coronavirus (PCR) (Negative)
--- NOTE | 2021-04-30 11:33 | Progress Note ---
Subjective - Reason for Consult Consult date: 04/30/21 Reason for consult: Depression - Chief Complaint Chief complaint: The patient was seen this morning in the seclusion room. he states " I threw my breakfast to the spirits." He reports having auditory/visual hallucinations. Per nurse, patient displays aggressive behaviors. Patient denies any current suicidal thoughts but is at risk to himself and others due to his aggressiveness. Diagnoses: Schizophrenia, Bipolar Suicide attempts or Self-harm behavior: Denies Prior psychiatric hospitalizations: Yes Substance Abuse history: Denies Previous psychiatric medications tried: Ativan, Zoloft, Prozac Outpatient treatment: yes SOCIAL HISTORY Marital Status: Single Living Arrangements: lives with mother Employment Status: unemployed Access to guns/weapons: Denied Education: 11th grade History of Abuse: Denied Legal History: None reported REVIEW OF SYSTEMS Constitutional: Negative for weight loss ENT: Negative for stridor Respiratory: Negative for cough or hemoptysis All other systems reviewed and are negative MENTAL STATUS EXAMINATION General Appearance and Behavior: Age appropriate, dressed appropriately, calm and cooperative Cooperation: Participating Psychomotor Behavior: psychomotor normal Mood: Agitated Affect and affective range: Congruent with stated mood Thought Process: goal directed Thought Content: Tangential Speech: Normal volume, Regular rate and rhythm, Intellectual Functioning: Average Suicidal Ideation: Denied Homicidal Ideation: Denied Hallucinations: Auditory and Visual Delusions: None elicited Impulse Control: Unimpaired Insight and Judgment: Poor insight and judgment, Memory: Normal Attention: Distractible Orientation: Alert, oriented Assessment and Plan (1)Schizophrenia- F20.9 Treatment Plan Continue Risperidone 1mg po BID Continue Depakote 500mg po BID The patient to comply with previously prescribed medications Risks, benefits and alternatives of medications discussed with the patient, questions answered and consent obtained from patient. PSYCHOTHERAPY: Supportive psychotherapy provided MEDICAL: Per primary team DELIRIUM PRECAUTIONS: Please re-orient patient frequently, keep lights on during the day, and minimize benzodiazepines and opiates as these medications could worsen patient's confusion. 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 Case discussed with Dr. Castillo who agrees with current disposition FOLLOW-UP: Will follow Please contact with any questions and/or concerns. Case staffed with Dr. Castillo Mental Status Exam - Vital signs Last Vital Signs Temp 97.9 F 04/30/21 10:30 Pulse 80 04/30/21 10:30 Resp 18 04/30/21 10:30 BP 161/91 04/30/21 10:30 Pulse Ox 100 04/30/21 10:30
--- NOTE | 2021-04-30 12:31 | Event Note ---
Date: 04/30/21 Patient is calm and cooperative. Still having some delusional psychotic symptoms. He states he threw his breakfast this morning at some spirits. Mild aggressive behaviors. Patient is continued to be a 1013. LIVE [facility] Psychiatry Progress Note Patient Name: SALOMÓN ROSENBAUM Date of : 79 Patient Status: Emergency Emergency Provider: KENNETH BATRES Date: 04/30/21 11:33 Initialization Date: 04/30/21 11:33 Subjective - Reason for Consult Consult date: 04/30/21 Reason for consult: Depression - Chief Complaint Chief complaint: The patient was seen this morning in the seclusion room. he states " I threw my breakfast to the spirits." He reports having auditory/visual hallucinations. Per nurse, patient displays aggressive behaviors. Patient denies any current suicidal thoughts but is at risk to himself and others due to his aggressiveness. Diagnoses: Schizophrenia, Bipolar Suicide attempts or Self-harm behavior: Denies Prior psychiatric hospitalizations: Yes Substance Abuse history: Denies Previous psychiatric medications tried: Ativan, Zoloft, Prozac Outpatient treatment: yes SOCIAL HISTORY Marital Status: Single Living Arrangements: lives with mother Employment Status: unemployed Access to guns/weapons: Denied Education: 11th grade History of Abuse: Denied Legal History: None reported REVIEW OF SYSTEMS Constitutional: Negative for weight loss ENT: Negative for stridor Respiratory: Negative for cough or hemoptysis All other systems reviewed and are negative MENTAL STATUS EXAMINATION General Appearance and Behavior: Age appropriate, dressed appropriately, calm and cooperative Cooperation: Participating Psychomotor Behavior: psychomotor normal Mood: Agitated Affect and affective range: Congruent with stated mood Thought Process: goal directed Thought Content: Tangential Speech: Normal volume, Regular rate and rhythm, Intellectual Functioning: Average Suicidal Ideation: Denied Homicidal Ideation: Denied Hallucinations: Auditory and Visual Delusions: None elicited Impulse Control: Unimpaired Insight and Judgment: Poor insight and judgment, Memory: Normal Attention: Distractible Orientation: Alert, oriented Assessment and Plan (1)Schizophrenia- F20.9 Treatment Plan Continue Risperidone 1mg po BID Continue Depakote 500mg po BID The patient to comply with previously prescribed medications Risks, benefits and alternatives of medications discussed with the patient, questions answered and consent obtained from patient. PSYCHOTHERAPY: Supportive psychotherapy provided MEDICAL: Per primary team DELIRIUM PRECAUTIONS: Please re-orient patient frequently, keep lights on during the day, and minimize benzodiazepines and opiates as these medications could worsen patient's confusion. MEDIA SERVICES DIRECTOR: Defer to primary DISPOSITION: Recommend acute inpatient psychiatric hospitalization at this time. Case discussed with Dr. Castillo who agrees with current disposition FOLLOW-UP: Will follow Please contact with any questions and/or concerns. Case staffed with Dr. Castillo
[2021-04-30 19:52] LABS: Basophils # (Auto) 0.1 K/mm3 (0.0-0.1); Basophils % (Auto) 0.7 % (0.0-1.8); Eosinophils # (Auto) 0.1 K/mm3 (0.0-0.4); Hematocrit 41.9 % (35.5-45.6); Hemoglobin 14.1 gm/dl (11.8-15.2); Lymphocytes # (Auto) 2.4 K/mm3 (1.2-5.4); Lymphocytes % (Auto) 22.2 % (13.4-35.0); Mean Corpuscular HGB Conc 34 % (32-34); Mean Corpuscular Volume 92 fl (84-94); Monocytes # (Auto) 1.1 K/mm3 (0.0-0.8); Monocytes % (Auto) 10.6 % (0.0-7.3); Platelet Count 227 K/mm3 (140-440); Red Blood Count 4.56 M/mm3 (3.65-5.03); Red Cell Distribution Width 15.6 % (13.2-15.2)
[2021-05-01] MEDS ORDERED: amLODIPine 5 MG TAB PO SCH (09:00)
[2021-05-01] MEDS: cloNIDine 0.2 MG TAB PO ONE (09:05)
[2021-05-01 09:06] VITALS: BP 212/135
[2021-05-01] MEDS ORDERED: amLODIPine 10 MG TAB PO SCH (10:00)
--- NOTE | 2021-05-01 10:18 | Progress Note ---
Subjective - Reason for Consult Consult date: 05/01/21 Reason for consult: suicidal ideation - Chief Complaint Chief complaint: The patient was seen this morning eating breakfast. He is calm, reports sleep and appetite as good. No aggressive behavior reported by the nurse. The patient denies any current suicidal/homicidal ideation and denies hallucinations. Diagnoses: Schizophrenia, Bipolar Suicide attempts or Self-harm behavior: Denies Prior psychiatric hospitalizations: Yes Substance Abuse history: Denies Previous psychiatric medications tried: Ativan, Zoloft, Prozac Outpatient treatment: yes SOCIAL HISTORY Marital Status: Single Living Arrangements: lives with mother Employment Status: unemployed Access to guns/weapons: Denied Education: 11th grade History of Abuse: Denied Legal History: None reported REVIEW OF SYSTEMS Constitutional: Negative for weight loss ENT: Negative for stridor Respiratory: Negative for cough or hemoptysis All other systems reviewed and are negative MENTAL STATUS EXAMINATION General Appearance and Behavior: Age appropriate, dressed appropriately, calm and cooperative Cooperation: Participating Psychomotor Behavior: psychomotor normal Mood: OK Affect and affective range: Congruent with stated mood Thought Process: goal directed Thought Content: No SI Speech: Normal volume, Regular rate and rhythm, Intellectual Functioning: Average Suicidal Ideation: Denied Homicidal Ideation: Denied Hallucinations: Denied Delusions: None elicited Impulse Control: Unimpaired Insight and Judgment: Poor insight and judgment, Memory: Normal Attention: Distractible Orientation: Alert, oriented Assessment and Plan (1)Schizophrenia- F20.9 Treatment Plan Continue Risperidone 1mg po BID Continue Depakote 500mg po BID The patient to comply with previously prescribed medications Risks, benefits and alternatives of medications discussed with the patient, questions answered and consent obtained from patient. PSYCHOTHERAPY: Supportive psychotherapy provided MEDICAL: Per primary team DELIRIUM PRECAUTIONS: Please re-orient patient frequently, keep lights on during the day, and minimize benzodiazepines and opiates as these medications could worsen patient's confusion. 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 FOLLOW-UP: Will sign off Please contact with any questions and/or concerns. Case staffed with Dr. Castillo Mental Status Exam - Vital signs Last Vital Signs Temp 98.5 F 05/01/21 08:00 Pulse 80 05/01/21 09:05 Resp 18 05/01/21 08:00 BP 212/135 05/01/21 09:05 Pulse Ox 97 05/01/21 08:00
[2021-05-01] MEDS: risperiDONE 1 MG TAB PO SCH (12:01)
[2021-05-01] MEDS: DIVALPROEX DR 500 MG TAB PO SCH (12:01)
== END 2021-05-01 12:38 | disposition home or self-care (01) ==
LOC: ED 08:26
DX: F20.9 Schizophrenia, unspecified (principal); I10 Essential (primary) hypertension; I16.0 Hypertensive urgency; Z20.822 Contact with and (suspected) exposure to COVID-19
CPT/HCPCS: 36415; 80048; 80307; 81001; 85025; 96372; 99285; J1200; J1630; J2060; U0003; 80320; G0480

== ENCOUNTER 2021-06-27 07:47 | Emergency (ER) | payer SELFPAY ==
--- NOTE | 2021-06-27 08:02 | Event Note ---
ED Screening Note Date of service: 06/27/21 Time: 08:00 ED Screening Note: 46-year-old -[place] male presents to the emergency room complaining of left hip pain and having suicidal and homicidal thoughts. Patient has a history of schizophrenia, major depressive disorder, multiple polysubstance abuse hypertension prediabetic. Patient states he is ran out of his medications. States that he is followed by [facility] and was last seen there in March 2021. This initial assessment/diagnostic orders/clinical plan/treatment(s) is/are subject to change based on patients health status, clinical progression and re- assessment by fellow clinical providers in the ED. Further treatment and workup at subsequent clinical providers discretion. Patient/guardian urged not to elope from the ED as their condition may be serious if not clinically assessed and managed. Initial orders include: Psych orders placed
[2021-06-27] MEDS ORDERED: CYCLOBENZAPRINE 10 MG TAB PO PRN (08:22)
--- NOTE | 2021-06-27 08:22 | Emergency Department Report ---
HPI - General Chief Complaint: Psych Time Seen by Provider: 06/27/21 08:07 - HPI HPI: Room 12 The patient is a 46-year-old male presenting with chief complaint of suicidal ideation. Patient has a history of schizophrenia and depression and states he has been off of his psych medications for approximately 1 month. Patient states he came to the emergency department because he has had suicidal ideation for 1 week and also had visual and auditory hallucinations seeing light orbs that speak to him. The patient states the orbits tell him "they are relative." Patient denies any attempts at harming himself but states his plan was to cut himself with a knife. Patient also complains of chronic left hip pain since October. Patient states he came to this hospital at that time had x-rays performed and was told he had arthritis in his hip. Patient states he has never followed up with orthopedic surgery ED Past Medical Hx - Past Medical History Hx Hypertension: Yes Hx Psychiatric Treatment: Yes (Schizophrenia, depression) - Surgical History Past Surgical History?: No - Family History Family history: no significant - Social History Smoking Status: Current Every Day Smoker (1/3 pack/day) Substance Use Type: Alcohol, Marijuana - Medications Home Medications: Home Medications Medication Instructions Recorded Confirmed Last Taken Type Naproxen [Naprosyn] 500 mg PO BID #14 tablet 06/09/19 05/01/21 Unknown Rx Naloxone HCl [Narcan Nasal [place]] 4 mg NS Q1HR PRN #5 spray 10/02/19 05/01/21 Unknown Rx Ondansetron [Zofran Odt] 4 mg PO Q8HR PRN #20 tab.rapdis 10/02/19 05/01/21 Unknown Rx Cyclobenzaprine [Flexeril] 10 mg PO QHS PRN #10 tablet 11/11/20 05/01/21 Unknown Rx Naproxen 500 mg PO Q12H PRN #12 tablet 11/11/20 05/01/21 Unknown Rx amLODIPine 10 mg PO DAILY #30 tab 11/11/20 05/01/21 Unknown Rx FLUoxetine [PROzac] 20 mg PO QDAY 04/29/21 04/29/21 Unknown History Valproic Acid [Depakene] 500 mg PO BID 30 Days #60 capsule 04/29/21 Unknown Rx risperiDONE [RisperDAL] 1 mg PO BID 30 Days #60 tablet 04/29/21 Unknown Rx amLODIPine 10 mg PO DAILY #30 tablet 05/01/21 Unknown Rx ED Review of Systems ROS: Stated complaint: MH EVAL/BACK PAIN Other details as noted in HPI Constitutional: no symptoms reported Eyes: denies: eye pain ENT: denies: throat pain Respiratory: no symptoms reported Cardiovascular: denies: chest pain Endocrine: no symptoms reported Gastrointestinal: denies: abdominal pain Genitourinary: denies: dysuria Musculoskeletal: denies: back pain Neurological: denies: headache Psychiatric: auditory hallucinations, visual hallucinations, suicidal thoughts Physical Exam - Physical Exam Vital Signs: Vital Signs 06/27/21 07:53 Temperature 98.6 F Pulse Rate 99 H Respiratory 18 Rate Blood Pressure 164/103 O2 Sat by Pulse 98 Oximetry Physical Exam: GENERAL: The patient is well-developed well-nourished male sitting on chair not appearing to be in acute distress. [] HEENT: Normocephalic. Atraumatic. Extraocular motions are intact. Patient has moist mucous membranes. NECK: Supple. Trachea midline CHEST/LUNGS: Clear to auscultation. There is no respiratory distress noted. HEART/CARDIOVASCULAR: Regular. There is no tachycardia. There is no gallop rub or murmur. ABDOMEN: Abdomen is soft, nontender. Patient has normal bowel sounds. There is no abdominal distention. SKIN: There is no rash. There is no edema. There is no diaphoresis. NEURO: The patient is awake, alert, and oriented. The patient is cooperative. The patient has no focal neurologic deficits. The patient has normal speech. GCS 15 MUSCULOSKELETAL: There is pain in the left hip from range of motion secondary to arthritis. There is no evidence of acute injury. ED Course Vital Signs 06/27/21 07:53 Temperature 98.6 F Pulse Rate 99 H Respiratory 18 Rate Blood Pressure 164/103 O2 Sat by Pulse 98 Oximetry ED Medical Decision Making - Lab Data Result diagrams: 06/27/21 08:17 06/27/21 08:17 Laboratory Tests 06/27/21 06/27/21 06/27/21 08:17 08:17 08:17 WBC 10.9 RBC 4.77 Hgb 14.1 Hct 41.6 MCV 87 MCH 30 MCHC 34 RDW 13.9 Plt Count 352 Lymph % (Auto) 21.9 [place] % (Auto) 9.5 H Eos % (Auto) 0.9 Baso % (Auto) 0.7 Lymph # (Auto) 2.4 [place] # (Auto) 1.0 H Eos # (Auto) 0.1 Baso # (Auto) 0.1 Seg Neutrophils % 67.0 Seg Neutrophils # 7.3 Sodium 138 Potassium 3.4 L Chloride 96.7 L Carbon Dioxide 27 Anion Gap 18 BUN 11 Creatinine 1.1 Estimated GFR > 60 BUN/Creatinine Ratio 10 Glucose 107 H Calcium 9.9 Urine Color Urine Turbidity Urine pH Ur Specific [place] Urine Protein Urine Glucose (UA) Urine Ketones Urine Blood Urine Nitrite Urine Bilirubin Urine Urobilinogen Ur Leukocyte Esterase Urine WBC (Auto) Urine RBC (Auto) U Epithel Cells (Auto) Urine Mucus Salicylates < 0.3 L Urine Opiates Screen Urine Methadone Screen Acetaminophen Ur Barbiturates Screen Valproic Acid 14.4 L Ur Phencyclidine Scrn Ur Amphetamines Screen U Benzodiazepines Scrn Urine Cocaine Screen 06/27/21 06/27/21 06/27/21 08:17 Unknown Unknown WBC RBC Hgb Hct MCV MCH MCHC RDW Plt Count Lymph % (Auto) Bryan % (Auto) Eos % (Auto) Baso % (Auto) Lymph # (Auto) Bryan # (Auto) Eos # (Auto) Baso # (Auto) Seg Neutrophils % Seg Neutrophils # Sodium Potassium Chloride Carbon Dioxide Anion Gap BUN Creatinine Estimated GFR BUN/Creatinine Ratio Glucose Calcium Urine Color Yellow Urine Turbidity Clear Urine pH 5.0 Ur Specific [place] 1.021 Urine Protein 100 mg/dl Urine Glucose (UA) Neg Urine Ketones Neg Urine Blood Sm Urine Nitrite Neg Urine Bilirubin Neg Urine Urobilinogen < 2.0 Ur Leukocyte Esterase Neg Urine WBC (Auto) 3.0 Urine RBC (Auto) 7.0 U Epithel Cells (Auto) < 1.0 Urine Mucus 1+ Salicylates Urine Opiates Screen Negative Urine Methadone Screen Negative Acetaminophen 5.0 L Ur Barbiturates Screen Negative Valproic Acid Ur Phencyclidine Scrn Negative Ur Amphetamines Screen Negative U Benzodiazepines Scrn Negative Urine Cocaine Screen Negative - Differential Diagnosis Suicidal ideation Critical care attestation.: If time is entered above; I have spent that time in minutes in the direct care of this critically ill patient, excluding procedure time. ED Disposition Clinical Impression: Suicidal ideation, Schizophrenia Disposition: [address] [place] [address] Is pt being admited?: No Does the pt Need Aspirin: No Condition: Stable
[2021-06-27 08:46] LABS: Basophils # (Auto) 0.1 K/mm3 (0.0-0.1); Basophils % (Auto) 0.7 % (0.0-1.8); Eosinophils # (Auto) 0.1 K/mm3 (0.0-0.4); Eosinophils % (Auto) 0.9 % (0.0-4.3); Hematocrit 41.6 % (35.5-45.6); Hemoglobin 14.1 gm/dl (11.8-15.2); Lymphocytes # (Auto) 2.4 K/mm3 (1.2-5.4); Lymphocytes % (Auto) 21.9 % (13.4-35.0); Mean Corpuscular HGB Conc 34 % (32-34); Mean Corpuscular Volume 87 fl (84-94); Monocytes % (Auto) 9.5 % (0.0-7.3); Platelet Count 352 K/mm3 (140-440); Red Blood Count 4.77 M/mm3 (3.65-5.03); Red Cell Distribution Width 13.9 % (13.2-15.2)
[2021-06-27 08:54] LABS: BUN/Creatinine Ratio 10; Blood Urea Nitrogen 11 mg/dL (9-20); Calcium 9.9 mg/dL (8.4-10.2); Hemolysis Index 1
[2021-06-27 09:07] LABS: Amphetamine Screen,Urine Negative; Benzodiazepines Screen,Urine Negative; Cocaine Screen,Urine Negative; Methadone Screen,Urine Negative; Opiate Screen,Urine Negative
[2021-06-27 09:08] LABS: Bilirubin,Urine NEG (Negative); Blood,Urine SM (Negative); Color,Urine Yellow (Yellow); Mucus,Urine 1+ /HPF; Urobilinogen,Urine < 2.0 mg/dL (<2.0)
[2021-06-27] MEDS ORDERED: POTASSIUM CHLORIDE ER 20 MEQ TAB PO ONE (09:19)
[2021-06-27 09:24] LABS: Cannabinoid Screen,Urine Positive
[2021-06-27] MEDS: amLODIPine 10 MG TAB PO SCH (10:24)
[2021-06-27] MEDS: FLUoxetine 20 MG CAP PO SCH (10:24)
[2021-06-27] MEDS: VALPROIC ACID 250 MG CAP PO SCH ×2 (10:24→21:50)
[2021-06-27] MEDS: risperiDONE 1 MG TAB PO SCH ×2 (10:24→21:51)
[2021-06-27] MEDS ORDERED: IBUPROFEN 800 MG TAB PO ONE (10:26)
[2021-06-27] MEDS ORDERED: IBUPROFEN 800 MG TAB ONE (10:27)
--- NOTE | 2021-06-27 10:27 | Consultation ---
History of Present Illness - Reason for Consult Consult date: 06/27/21 Reason for consult: SI - History of Present Psychiatric Illness ED Note: The patient is a 46-year-old male presenting with chief complaint of suicidal ideation. Patient has a history of schizophrenia and depression and states he has been off of his psych medications for approximately 1 month. Patient states he came to the emergency department because he has had suicidal ideation for 1 week and also had visual and auditory hallucinations seeing light orbs that speak to him. The patient states the orbits tell him "they are relative." Patient denies any attempts at harming himself but states his plan was to cut himself with a knife. Patient also complains of chronic left hip pain since October. Patient states he came to this hospital at that time had x- rays performed and was told he had arthritis in his hip. Patient states he has never followed up with orthopedic surgery. Chilo Wade is a 46 year old male with history of Schizophrenia, Depression who presents to the ED with suicidal ideation. In my interview with the patient, he is calm. The Patient reports being non compliant with psychotropic medications for the last one month. He endorses suicidal ideation with a plan to stab himself on the arm. The patient reports having command auditory hallucinations stating " voices telling me to harm myself and I see white bulbs." He denies having homicidal ideation. Psych History Diagnoses: Schizophrenia, Depression Suicide attempts or Self-harm behavior:Denies Prior psychiatric hospitalizations: Yes Substance Abuse history: Marijuana Previous psychiatric medications tried: Depakote, Risperidone Outpatient treatment: Yes PAST MEDICAL HISTORY: none reported Family Psychiatric History: None reported or documented SOCIAL HISTORY Marital Status: Single Living Arrangements: Lives with mother Employment Status:unemployed Access to guns/weapons: Denies Education: 11th grade ( special ed) History of Abuse:Denies Legal History: none reported REVIEW OF SYSTEMS Constitutional: Negative for weight loss ENT: Negative for stridor Respiratory: Negative for cough or hemoptysis All other systems reviewed and are negative MENTAL STATUS EXAMINATION General Appearance and Behavior: Age appropriate, good hygiene, wearing appropriate clothes, sleeping, cooperative Cooperation: Participating but drowsy Psychomotor Behavior: unremarkable and within normal limits Mood:Depressed Affect and affective range: congruent with mood Thought Process:Hallucinations Thought Content: Suicidal Speech: Normal volume, Regular rate and rhythm, Suicidal Ideation:Yes Homicidal Ideation:Denies Hallucinations: Yes, auditory and Visual Delusions: None elicited Impulse Control: Unimpaired Insight and Judgment: Limited insight and poor judgment, Memory: Normal, Attention: Normal Orientation: Alert, oriented Assessment and Plan (1)Schizophrenia- F20.9 Continue 1013 Continue previously prescribed medications Continue Risperidone 1mg po BID Continue Depakote DR 500mg po BID Continue Prozac 20mg po daily The patient to comply with previously prescribed medications Risks, benefits and alternatives of medications discussed with the patient, questions answered and consent obtained from patient. PSYCHOTHERAPY: Supportive psychotherapy provided MEDICAL: Per primary team DELIRIUM PRECAUTIONS: Please re-orient patient frequently, keep lights on during the day, and minimize benzodiazepines and opiates as these medications could worsen patient's confusion. 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 Will follow. Thank you for the consult. Please contact with any questions and/or concerns. Case staffed with Dr. Castillo Medications and Allergies Allergies Allergy/AdvReac Type Severity Reaction Status Date / Time haloperidol [From Haldol] AdvReac Severe Unknown Verified 06/27/21 07:58 Home Medications Medication Instructions Recorded Confirmed Last Taken Type Naproxen [Naprosyn] 500 mg PO BID #14 tablet 06/09/19 05/01/21 Unknown Rx Naloxone HCl [Narcan Nasal [place]] 4 mg NS Q1HR PRN #5 spray 10/02/19 05/01/21 Unknown Rx Ondansetron [Zofran Odt] 4 mg PO Q8HR PRN #20 tab.rapdis 10/02/19 05/01/21 Unknown Rx Cyclobenzaprine [Flexeril] 10 mg PO QHS PRN #10 tablet 11/11/20 05/01/21 Unknown Rx Naproxen 500 mg PO Q12H PRN #12 tablet 11/11/20 05/01/21 Unknown Rx amLODIPine 10 mg PO DAILY #30 tab 11/11/20 05/01/21 Unknown Rx FLUoxetine [PROzac] 20 mg PO QDAY 04/29/21 04/29/21 Unknown History Valproic Acid [Depakene] 500 mg PO BID 30 Days #60 capsule 04/29/21 Unknown Rx risperiDONE [RisperDAL] 1 mg PO BID 30 Days #60 tablet 04/29/21 Unknown Rx amLODIPine 10 mg PO DAILY #30 tablet 05/01/21 Unknown Rx Active Meds: Active Medications Amlodipine Besylate (Amlodipine 10 Mg Tab) 10 mg PO DAILY [facility] Cyclobenzaprine HCl (Cyclobenzaprine 10 Mg Tab) 10 mg PO QHS PRN PRN Reason: Muscle Spasm Fluoxetine HCl (Fluoxetine 20 Mg Cap) 20 mg PO QDAY [facility] Naproxen (Naproxen 500 Mg Tab) 500 mg PO BID [facility] Risperidone (Risperidone 1 Mg Tab) 1 mg PO BID [facility] Valproic Acid (Valproic Acid 250 Mg Cap) 500 mg PO BID [facility] Mental Status Exam - Vital signs Last Vital Signs Temp 98.6 F 06/27/21 07:53 Pulse 99 H 06/27/21 07:53 Resp 18 06/27/21 07:53 BP 164/103 06/27/21 07:53 Pulse Ox 98 06/27/21 07:53 Results Result Diagrams: 06/27/21 08:17 06/27/21 08:17 Abnormal lab results 06/27/21 06/27/21 06/27/21 Range/Units 08:17 08:17 08:17 [place] % (Auto) 9.5 H (0.0-7.3) % [place] # (Auto) 1.0 H (0.0-0.8) K/mm3 Potassium 3.4 L (3.6-5.0) mmol/L Chloride 96.7 L (98-107) mmol/L Glucose 107 H (75-100) mg/dL Salicylates < 0.3 L (2.8-20.0) mg/dL Acetaminophen (10.0-30.0) ug/mL Valproic Acid 14.4 L (50-100) ug/mL 06/27/21 Range/Units 08:17 [place] % (Auto) (0.0-7.3) % [place] # (Auto) (0.0-0.8) K/mm3 Potassium (3.6-5.0) mmol/L Chloride (98-107) mmol/L Glucose (75-100) mg/dL Salicylates (2.8-20.0) mg/dL Acetaminophen 5.0 L (10.0-30.0) ug/mL Valproic Acid (50-100) ug/mL All other labs normal.
[2021-06-27] MEDS: NAPROXEN 500 MG TAB PO SCH ×2 (15:56→21:54)
[2021-06-28 08:39] VITALS: BP 156/109
--- NOTE | 2021-06-28 10:18 | Event Note ---
Date: 06/28/21 The patient was evaluated in the emergency department for symptoms described in the history of present illness. He/she was evaluated in the context of the global COVID-19 pandemic, which necessitated consideration that the patient might be at risk for infection with the virus that causes COVID-19. Institutional protocols and algorithms that pertain to the evaluation of patients at risk for COVID-19 are in a state of rapid change based on information released by regulatory bodies including the CDC and federal and state organizations. These policies and algorithms were followed during the patient's care in the emergency department. Please note that these policies, procedures and recommendations changed on a rapid basis. Laboratory studies, vital signs, nursing documentation, ER documentation, and psychiatric documentation are reviewed and appreciated. Nursing team reports no acute events this morning or concerns. The patient is awake and ambulating and does not appear to be in any acute distress. The patient was deemed medically suitable for psychiatric disposition and placement during his initial ER evaluation. The patient continues to remain medically suitable for psychiatric placement and disposition. He is currently pending psychiatric placement. 0 06/28/2021; 13: 26 PM Psychiatry team has recommended discharge. They have written this patient for appropriate prescriptions. Patient will be discharged. Vital Signs 06/27/21 06/27/21 06/27/21 07:53 19:39 19:41 Temperature 98.6 F 98.7 F Pulse Rate 99 H 70 Respiratory 18 16 16 Rate Blood Pressure 164/103 Blood Pressure 137/90 [Left] O2 Sat by Pulse 98 97 97 Oximetry 06/28/21 08:38 Temperature 98.8 F Pulse Rate 82 Respiratory 20 Rate Blood Pressure Blood Pressure 156/109 [Left] O2 Sat by Pulse 100 Oximetry Lab Results 06/27/21 06/27/21 06/27/21 Range/Units 08:17 08:17 08:17 WBC 10.9 (4.5-11.0) K/mm3 RBC 4.77 (3.65-5.03) M/mm3 Hgb 14.1 (11.8-15.2) gm/dl Hct 41.6 (35.5-45.6) % MCV 87 (84-94) fl MCH 30 (28-32) pg MCHC 34 (32-34) % RDW 13.9 (13.2-15.2) % Plt Count 352 (140-440) K/mm3 Lymph % (Auto) 21.9 (13.4-35.0) % Stone % (Auto) 9.5 H (0.0-7.3) % Eos % (Auto) 0.9 (0.0-4.3) % Baso % (Auto) 0.7 (0.0-1.8) % Lymph # (Auto) 2.4 (1.2-5.4) K/mm3 Stone # (Auto) 1.0 H (0.0-0.8) K/mm3 Eos # (Auto) 0.1 (0.0-0.4) K/mm3 Baso # (Auto) 0.1 (0.0-0.1) K/mm3 Seg Neutrophils % 67.0 (40.0-70.0) % Seg Neutrophils # 7.3 (1.8-7.7) K/mm3 Sodium 138 (137-145) mmol/L Potassium 3.4 L (3.6-5.0) mmol/L Chloride 96.7 L (98-107) mmol/L Carbon Dioxide 27 (22-30) mmol/L Anion Gap 18 mmol/L BUN 11 (9-20) mg/dL Creatinine 1.1 (0.8-1.3) mg/dL Estimated GFR > 60 ml/min BUN/Creatinine Ratio 10 % Glucose 107 H (75-100) mg/dL Calcium 9.9 (8.4-10.2) mg/dL Urine Color (Yellow) Urine Turbidity (Clear) Urine pH (5.0-7.0) Ur Specific [place] (1.003-1.030) Urine Protein (Negative) mg/dL Urine Glucose (UA) (Negative) mg/dL Urine Ketones (Negative) mg/dL Urine Blood (Negative) Urine Nitrite (Negative) Urine Bilirubin (Negative) Urine Urobilinogen (<2.0) mg/dL Ur Leukocyte Esterase (Negative) Urine WBC (Auto) (0.0-6.0) /HPF Urine RBC (Auto) (0.0-6.0) /HPF U Epithel Cells (Auto) (0-13.0) /HPF Urine Mucus /HPF Salicylates < 0.3 L (2.8-20.0) mg/dL Urine Opiates Screen Urine Methadone Screen Acetaminophen (10.0-30.0) ug/mL Ur Barbiturates Screen Valproic Acid 14.4 L (50-100) ug/mL Ur Phencyclidine Scrn Ur Amphetamines Screen U Benzodiazepines Scrn Urine Cocaine Screen U Marijuana (THC) Screen Drugs of Abuse Note 06/27/21 06/27/21 06/27/21 Range/Units 08:17 Unknown Unknown WBC (4.5-11.0) K/mm3 RBC (3.65-5.03) M/mm3 Hgb (11.8-15.2) gm/dl Hct (35.5-45.6) % MCV (84-94) fl MCH (28-32) pg MCHC (32-34) % RDW (13.2-15.2) % Plt Count (140-440) K/mm3 Lymph % (Auto) (13.4-35.0) % Stone % (Auto) (0.0-7.3) % Eos % (Auto) (0.0-4.3) % Baso % (Auto) (0.0-1.8) % Lymph # (Auto) (1.2-5.4) K/mm3 Stone # (Auto) (0.0-0.8) K/mm3 Eos # (Auto) (0.0-0.4) K/mm3 Baso # (Auto) (0.0-0.1) K/mm3 Seg Neutrophils % (40.0-70.0) % Seg Neutrophils # (1.8-7.7) K/mm3 Sodium (137-145) mmol/L Potassium (3.6-5.0) mmol/L Chloride (98-107) mmol/L Carbon Dioxide (22-30) mmol/L Anion Gap mmol/L BUN (9-20) mg/dL Creatinine (0.8-1.3) mg/dL Estimated GFR ml/min BUN/Creatinine Ratio % Glucose (75-100) mg/dL Calcium (8.4-10.2) mg/dL Urine Color Yellow (Yellow) Urine Turbidity Clear (Clear) Urine pH 5.0 (5.0-7.0) Ur Specific [place] 1.021 (1.003-1.030) Urine Protein 100 mg/dl (Negative) mg/dL Urine Glucose (UA) Neg (Negative) mg/dL Urine Ketones Neg (Negative) mg/dL Urine Blood Sm (Negative) Urine Nitrite Neg (Negative) Urine Bilirubin Neg (Negative) Urine Urobilinogen < 2.0 (<2.0) mg/dL Ur Leukocyte Esterase Neg (Negative) Urine WBC (Auto) 3.0 (0.0-6.0) /HPF Urine RBC (Auto) 7.0 (0.0-6.0) /HPF U Epithel Cells (Auto) < 1.0 (0-13.0) /HPF Urine Mucus 1+ /HPF Salicylates (2.8-20.0) mg/dL Urine Opiates Screen Negative Urine Methadone Screen Negative Acetaminophen 5.0 L (10.0-30.0) ug/mL Ur Barbiturates Screen Negative Valproic Acid (50-100) ug/mL Ur Phencyclidine Scrn Negative Ur Amphetamines Screen Negative U Benzodiazepines Scrn Negative Urine Cocaine Screen Negative U Marijuana (THC) Screen Positive Drugs of Abuse Note Disclamer
[2021-06-28] MEDS: amLODIPine 10 MG TAB PO SCH (10:42)
[2021-06-28] MEDS: risperiDONE 1 MG TAB PO SCH (10:43)
[2021-06-28] MEDS: NAPROXEN 500 MG TAB PO SCH (10:43)
[2021-06-28] MEDS: VALPROIC ACID 250 MG CAP PO SCH (10:43)
[2021-06-28] MEDS: FLUoxetine 20 MG CAP PO SCH (10:43)
--- NOTE | 2021-06-28 10:54 | Progress Note ---
Subjective - Reason for Consult Consult date: 06/28/21 Reason for consult: SI - Chief Complaint Chief complaint: The patient was seen this morning,he continues to express passive suicidal ideation. He reports sleep and appetite as good. Patient wants to be restarted on his home medications. REVIEW OF SYSTEMS Constitutional: Negative for weight loss ENT: Negative for stridor Respiratory: Negative for cough or hemoptysis All other systems reviewed and are negative MENTAL STATUS EXAMINATION General Appearance and Behavior: Age appropriate, good hygiene, wearing appropriate clothes, sleeping, cooperative Cooperation: Participating but drowsy Psychomotor Behavior: unremarkable and within normal limits Mood:Depressed Affect and affective range: incongruent with mood Thought Process:goal directed Thought Content: labile Speech: Normal volume, Regular rate and rhythm, Suicidal Ideation:Yes, passive Homicidal Ideation:Denies Hallucinations: Yes, auditory and Visual- chronic Delusions: None elicited Impulse Control: Unimpaired Insight and Judgment: Limited insight and poor judgment, Memory: Normal, Attention: Normal Orientation: Alert, oriented Assessment and Plan (1)Schizophrenia- F20.9 DC 1013 Continue previously prescribed medications Continue Risperidone 1mg po BID Start Vistaril 25mg po BID Start Zoloft 25mg po Daily Start Remeron 15mg po QHS The patient to comply with previously prescribed medications Risks, benefits and alternatives of medications discussed with the patient, questions answered and consent obtained from patient. PSYCHOTHERAPY: Supportive psychotherapy provided MEDICAL: Per primary team DELIRIUM PRECAUTIONS: Please re-orient patient frequently, keep lights on during the day, and minimize benzodiazepines and opiates as these medications could worsen patient's confusion. COMPUTATIONAL BIOLOGIST: Defer to primary Disposition: Do not recommend inpatient psychiatry at this time. The patient understands that if suicidal/homicidal ideation or any endangering thoughts /behavior arise, she should immediately seek for emergent assistance including but not limited to crisis hotline and emergency room. Follow up with outpatient psychiatrist and PCP withing 7- 14 days of discharge. Lab Technologist will provide patient with outpatient resources. Will sign off. Mental Status Exam - Vital signs Last Vital Signs Temp 98.8 F 06/28/21 08:38 Pulse 82 06/28/21 08:38 Resp 20 06/28/21 08:38 BP 156/109 06/28/21 08:38 Pulse Ox 100 06/28/21 08:38
== END 2021-06-28 14:00 | disposition home or self-care (01) ==
LOC: ED 07:47
DX: F20.9 Schizophrenia, unspecified (principal); R45.851 Suicidal ideations; I10 Essential (primary) hypertension; F31.9 Bipolar disorder, unspecified; F17.290 Nicotine dependence, other tobacco product, uncomplicated; Z20.822 Contact with and (suspected) exposure to COVID-19
CPT/HCPCS: 36415; 80048; 80164; 80307; 81001; 85025; 99284; U0003; 80320; G0480